=== PATIENT | male | born 1970 | race Caucasian/White ===

== ENCOUNTER 2024-08-02 10:04 | Emergency (ER) | payer BC, OTHER, SELFPAY ==
[2024-08-02] VITALS (8 sets, daily range): BP systolic 119–165; BP diastolic 77–104; PULSE 73–99; RESP 18–22; TEMP 36.6; O2SAT 95–99; BMI 31.7
--- NOTE | 2024-08-02 10:10 | EKG12_ITS ---
Test Reason : CP Blood Pressure : */* mmHG Vent. Rate : 96 BPM Atrial Rate : 96 BPM P-R Int : 126 ms QRS Dur : 98 ms QT Int : 366 ms P-R-T Axes : 41 -23 42 degrees QTcB Int : 462 ms Normal sinus rhythm Normal ECG Confirmed by Jonathan Sparks ([id number]), manager editorial KIESHA EUGENE ([id number]) on 08/03/2024 8:20:55 AM Referred By: Confirmed By: Jonathan Sparks
[2024-08-02] MEDS: Nitroglycerin SL (ED/IMG/CATH) 0.4 MG TABLET SL (10:14)
[2024-08-02] MEDS: Aspirin 81 MG TAB.CHEW 324 MG PO (10:14)
--- NOTE | 2024-08-02 10:20 | RAD_ITS ---
PROCEDURE: CHEST 1 VIEW (PORTABLE) REASON FOR EXAM: Dyspnea this morning. TECHNIQUE: Frontal view of the chest. COMPARISON: None FINDINGS: EKG electrodes are seen. The heart size is normal. Elevation of the right hemidiaphragm. Mild degree of bibasilar atelectasis. RAD/Chest 1 View (Portable) IMPRESSION: Mild degree of bibasilar atelectasis. Reading Location: [facility]
[2024-08-02 10:33] LABS: Absolute Lymphocyte Count 0.92 X10^3/uL (0.83-4.51); Absolute Neutrophil Count 5.4 X10^3/uL (2.0-7.7); Basophil# 0.04 X10^3/uL; Basophil% 0.6 % (0-1); Eosinophil# 0.16 X10^3/uL; Eosinophils% 2.3 % (0-5); Hematocrit 44.4 % (40-54); Hemoglobin 14.6 g/dL (13.0-16.5); Lymphocyte # 0.92 X10^3/ul (0.83-4.51); Mean Corp Hgb Conc 32.9 g/dL (32-36); Mean Corpuscular Hgb 29.6 pg (27.0-32.0); Mean Corpuscular Volume 89.9 fL (80-94); Mean Platelet Vol. 9.7 fl (6.2-12.0); Monocyte# 0.53 X10^3/uL; Monocyte% 7.5 % (0-10); NRBC Flagged by Analyzer 0 % (0-5); Neutrophil # 5.43 X10^3/uL (2.7-7.7); Neutrophil % 76.5 % (47-70); Platelet Count 247 K/mm3 (150-450); RBC Distribution Width CV 12.9 % (11.6-14.6); RBC Distribution Width SD 42.3 fl (35.1-43.9); Red Blood Count 4.94 M/mm3 (4.6-6.2); White Blood Count 7.1 K/mm3 (4.4-11.0)
--- NOTE | 2024-08-02 10:46 | CT_ITS ---
PROCEDURE: CTA CHEST W/WO CONTRAST REASON FOR EXAM: Left-sided chest pain. Worse with deep breathing. 100 cc of Isovue 370. TECHNIQUE: CTA imaging of the chest with intravenous contrast. 3D reconstructions. CONTRAST: COMPARISON: Comparison is made with prior chest radiograph done earlier in the day. FINDINGS: Hardware: None. Lymph nodes: Small bilateral axillary lymph nodes. Small benign-appearing mediastinal lymph nodes. Heart: Normal heart size. No pericardial effusion. RV/LV Diameter Ratio: N/A Thoracic Aorta: No thoracic aortic aneurysm or dissection. Pulmonary Vessels: No evidence of acute pulmonary emboli through the major subsegmental branches. Most Proximal Level of Embolus (if embolus present): N/A Lungs and Airways: Small left pleural effusion with increased markings at the left lung base suggestive of compressive atelectasis. With the patient's history of trauma, this may represent contusion. Elevation of the right hemidiaphragm. Pleura: No pleural effusion. No pneumothorax. Upper Abdomen: There is a 4 cm cyst in the upper lateral aspect of the left kidney. Bones: No rib fractures are seen. CT/CTA Chest W/WO Contrast IMPRESSION: Small left pleural effusion with atelectasis and/or possible contusion at the l eft lung base. No overlying rib fracture is seen. One or more dose reduction techniques were used (e.g., Automated exposure contr ol, adjustment of the mA and/or kV according to patient size, use of iterative reconstruction technique). Reading Location: [id number]
[2024-08-02 11:03] LABS: Troponin T High Sensitivity 8 ng/L (<=22)
--- NOTE | 2024-08-02 11:53 | ED.RN ---
calling lab regarding not having BMP results
--- NOTE | 2024-08-02 11:54 | ED.VIS.CHEST ---
HPI History of Present Illness Chief Complaint: Chest Pain Narrative Narrative: 54-year-old male presents with left-sided pleuritic chest pain that he has had over the last hour. While it is slowly improving, but still present. It hurts more when he takes a deep breath. He denies any recent fevers or chills, no cough. No nausea or vomiting. He does feel short of breath and gets sharp pain on the left side more anteriorly whenever he tries to take a deep breath. No recent leg swelling. [facility] Medical History Anxiety Home Medications ?Medication ?Instructions ?Recorded ?Last Taken ?Type oxycodone-acetaminophen 5 mg-325 1 tab PO Q6H PRN pain 3 days #12 08/02/24 Unknown Rx mg tablet (Percocet) tabs Allergy/AdvReac Type Severity Reaction Status Date / Time No Known Allergies Allergy Verified 08/02/24 10:04 Social History Smoking Status: Never smoker ROS ROS ED ROS Narrative Review of systems positive for left-sided pleuritic chest pain. No nausea or vomiting. Mild shortness of breath. Worse with deep breathing pain. No fevers or chills. No nausea or vomiting. No diaphoresis. Denies abdominal pain or increased leg swelling. EXAM Physical Exam Narrative Exam Narrative: Afebrile. Vital signs noted. Nontoxic-appearing. The abdomen is soft nontender with normoactive bowel sounds. Cardiovascular examination reveals a regular rate and rhythm. Lungs are clear to auscultation bilaterally. Neurological examination nonfocal and nonlateralizing. No appreciable pedal edema. Const Vital Signs: 08/02/24 10:05 08/02/24 10:07 08/02/24 10:14 Temperature 97.8 F Temperature Source Oral Pulse Rate 97 96 Respiratory Rate 18 Respiratory Effort Normal Non-Labored Respiratory Pattern Normal Blood Pressure 165/104 H 161/103 H Blood Pressure Mean 124 Pulse Ox 96 Oxygen Delivery Method Room Air 08/02/24 10:28 08/02/24 10:40 08/02/24 11:44 Temperature Temperature Source Pulse Rate 99 85 83 Respiratory Rate 22 H 18 18 Respiratory Effort Respiratory Pattern Blood Pressure 144/100 H 129/96 H 120/78 Blood Pressure Mean 114 107 92 Pulse Ox 99 98 98 Oxygen Delivery Method Room Air Room Air Room Air 08/02/24 12:49 08/02/24 13:29 08/02/24 13:53 Temperature 98 F Temperature Source Pulse Rate 77 77 73 Respiratory Rate 18 18 18 Respiratory Effort Respiratory Pattern Blood Pressure 124/78 H 119/77 135/85 H Blood Pressure Mean 93 91 101 Pulse Ox 95 98 98 Oxygen Delivery Method Room Air Room Air Heart Score History: Slightly/Non-Suspicious ECG: Normal Age: >45 - <65 years Risk Factors: 1 or 2 Risk Factors Troponin: </= Normal Limit Score: 2 MDM MDM MDM Narrative Medical decision making narrative: Differential diagnosis includes but not limited to pneumonia versus pleurisy versus pulmonary embolism versus ACS. Patient administered aspirin and nitroglycerin with no change in his pleuritic pain. EKG obtained and interpreted by myself independently as normal sinus rhythm at 96 bpm without ectopy or acute ST changes. No STEMI. I reviewed his laboratory work and he has normal white count of 7.1 with hemoglobin normal at 14.6, hematocrit 44.4, platelet count normal at 247. His D-dimer is elevated at 1.90. This may be more suspicious for pulmonary embolism. Chest x-ray had already been obtained and interpreted by myself independently bibasilar atelectasis but no consolidation or pneumothorax. I reviewed the radiology report which confirms my independent interpretation. I reviewed his BMP and he has a sodium normal at 137 with chloride 102, potassium normal at 4.4. There may be slight hemolysis. Creatinine 0.92 and normal with BUN of 26. Initial high-sensitivity troponin is 8 with repeat at 2 hours being 7. I feel his delta troponin is acceptable and that he has been ruled out for ACS with biomarkers. I reviewed the radiology report of the CTA of the chest which shows no evidence of pulmonary embolism. While there is no pulmonary embolism, there is small left pleural effusion noted. He was then administered ketorolac and morphine for his pleuritic chest pain. No feel he requires antibiotics for pneumonia. His blood pressure has come down to 124/78 from 165/104. Pulse ox currently 99% on room air. Repeat examination shows him resting comfortably. At this point in time, I do feel he can be discharged to follow-up regarding his pleural effusion and pleuritic chest pain. He has written a prescription for 12 Percocet tablets to take as needed. He can also take [id number] ibuprofen. Return instructions to the emergency department were reviewed. Disposition is discharged home in stable condition. History & Record Review Discussion w/independent historian: Patient Lab Data Attestation: I reviewed the patient's lab results. Labs: Laboratory Results - last 24 hr 08/02/24 08/02/24 08/02/24 10:07 10:07 10:07 WBC 7.1 RBC 4.94 Hgb 14.6 Hct 44.4 MCV 89.9 MCH 29.6 MCHC 32.9 RDW Std Deviation 42.3 RDW Coeff of Kala 12.9 Plt Count 247 MPV 9.7 Immature Gran % (Auto) 0.100 Neut % (Auto) 76.5 H Lymph % (Auto) 13.0 L [place] % (Auto) 7.5 Eos % (Auto) 2.3 Baso % (Auto) 0.6 Absolute Neuts (auto) 5.4 Absolute Lymphs (auto) 0.92 Nucleated RBC % 0 D-Dimer Quant (PE/DVT) 1.90 H* Sodium 137 Cancelled Cancelled Potassium 4.4 Chloride Carbon Dioxide Anion Gap BUN Creatinine Estim Creat Clear Calc Est GFR (MDRD) Non-Af BUN/Creatinine Ratio Glucose Calcium Troponin T High Sens Troponin T Hi Sens 2 Hr 08/02/24 08/02/24 08/02/24 10:07 10:07 10:07 WBC RBC Hgb Hct MCV MCH MCHC RDW Std Deviation RDW Coeff of Kala Plt Count MPV Immature Gran % (Auto) Neut % (Auto) Lymph % (Auto) [place] % (Auto) Eos % (Auto) Baso % (Auto) Absolute Neuts (auto) Absolute Lymphs (auto) Nucleated RBC % D-Dimer Quant (PE/DVT) Sodium Potassium Cancelled Cancelled Chloride 102 Cancelled Carbon Dioxide Anion Gap BUN Creatinine Estim Creat Clear Calc Est GFR (MDRD) Non-Af BUN/Creatinine Ratio Glucose Calcium Troponin T High Sens Troponin T Hi Sens 2 Hr 08/02/24 08/02/24 08/02/24 10:07 10:07 10:07 WBC RBC Hgb Hct MCV MCH MCHC RDW Std Deviation RDW Coeff of Kala Plt Count MPV Immature Gran % (Auto) Neut % (Auto) Lymph % (Auto) [place] % (Auto) Eos % (Auto) Baso % (Auto) Absolute Neuts (auto) Absolute Lymphs (auto) Nucleated RBC % D-Dimer Quant (PE/DVT) Sodium Potassium Chloride Cancelled Carbon Dioxide 18.8 L Cancelled Cancelled Anion Gap 16 H BUN Creatinine Estim Creat Clear Calc Est GFR (MDRD) Non-Af BUN/Creatinine Ratio Glucose Calcium Troponin T High Sens Troponin T Hi Sens 2 Hr 08/02/24 08/02/24 08/02/24 10:07 10:07 10:07 WBC RBC Hgb Hct MCV MCH MCHC RDW Std Deviation RDW Coeff of Kala Plt Count MPV Immature Gran % (Auto) Neut % (Auto) Lymph % (Auto) [place] % (Auto) Eos % (Auto) Baso % (Auto) Absolute Neuts (auto) Absolute Lymphs (auto) Nucleated RBC % D-Dimer Quant (PE/DVT) Sodium Potassium Chloride Carbon Dioxide Anion Gap Cancelled Cancelled BUN 26 H Cancelled Creatinine Estim Creat Clear Calc Est GFR (MDRD) Non-Af BUN/Creatinine Ratio Glucose Calcium Troponin T High Sens Troponin T Hi Sens 2 Hr 08/02/24 08/02/24 08/02/24 10:07 10:07 10:07 WBC RBC Hgb Hct MCV MCH MCHC RDW Std Deviation RDW Coeff of Kala Plt Count MPV Immature Gran % (Auto) Neut % (Auto) Lymph % (Auto) [place] % (Auto) Eos % (Auto) Baso % (Auto) Absolute Neuts (auto) Absolute Lymphs (auto) Nucleated RBC % D-Dimer Quant (PE/DVT) Sodium Potassium Chloride Carbon Dioxide Anion Gap BUN Cancelled Creatinine 0.9 Cancelled Cancelled Estim Creat Clear Calc 133.45 Est GFR (MDRD) Non-Af BUN/Creatinine Ratio Glucose Calcium Troponin T High Sens Troponin T Hi Sens 2 Hr 08/02/24 08/02/24 08/02/24 10:07 10:07 10:07 WBC RBC Hgb Hct MCV MCH MCHC RDW Std Deviation RDW Coeff of Kala Plt Count MPV Immature Gran % (Auto) Neut % (Auto) Lymph % (Auto) [place] % (Auto) Eos % (Auto) Baso % (Auto) Absolute Neuts (auto) Absolute Lymphs (auto) Nucleated RBC % D-Dimer Quant (PE/DVT) Sodium Potassium Chloride Carbon Dioxide Anion Gap BUN Creatinine Estim Creat Clear Calc Cancelled Cancelled Est GFR (MDRD) Non-Af 99 Cancelled BUN/Creatinine Ratio Glucose Calcium Troponin T High Sens Troponin T Hi Sens 2 Hr 08/02/24 08/02/24 08/02/24 10:07 10:07 10:07 WBC RBC Hgb Hct MCV MCH MCHC RDW Std Deviation RDW Coeff of Kala Plt Count MPV Immature Gran % (Auto) Neut % (Auto) Lymph % (Auto) [place] % (Auto) Eos % (Auto) Baso % (Auto) Absolute Neuts (auto) Absolute Lymphs (auto) Nucleated RBC % D-Dimer Quant (PE/DVT) Sodium Potassium Chloride Carbon Dioxide Anion Gap BUN Creatinine Estim Creat Clear Calc Est GFR (MDRD) Non-Af Cancelled BUN/Creatinine Ratio 27.8 H Cancelled Cancelled Glucose 95 Calcium Troponin T High Sens Troponin T Hi Sens 2 Hr 08/02/24 08/02/24 08/02/24 10:07 10:07 10:07 WBC RBC Hgb Hct MCV MCH MCHC RDW Std Deviation RDW Coeff of Kala Plt Count MPV Immature Gran % (Auto) Neut % (Auto) Lymph % (Auto) [place] % (Auto) Eos % (Auto) Baso % (Auto) Absolute Neuts (auto) Absolute Lymphs (auto) Nucleated RBC % D-Dimer Quant (PE/DVT) Sodium Potassium Chloride Carbon Dioxide Anion Gap BUN Creatinine Estim Creat Clear Calc Est GFR (MDRD) Non-Af BUN/Creatinine Ratio Glucose Cancelled Cancelled Calcium 9.6 Cancelled Troponin T High Sens Troponin T Hi Sens 2 Hr 08/02/24 08/02/24 10:07 12:00 WBC RBC Hgb Hct MCV MCH MCHC RDW Std Deviation RDW Coeff of Kala Plt Count MPV Immature Gran % (Auto) Neut % (Auto) Lymph % (Auto) [place] % (Auto) Eos % (Auto) Baso % (Auto) Absolute Neuts (auto) Absolute Lymphs (auto) Nucleated RBC % D-Dimer Quant (PE/DVT) Sodium Potassium Chloride Carbon Dioxide Anion Gap BUN Creatinine Estim Creat Clear Calc Est GFR (MDRD) Non-Af BUN/Creatinine Ratio Glucose Calcium Cancelled Troponin T High Sens 8 Troponin T Hi Sens 2 Hr 7 Radiography Chest X-Ray - ED: 1 View, Read by ED Physician and Read by Radiologist Diagnostic Testing: Clinical Impression(s) from Imaging Studies Chest X-Ray 08/02/24 10:20 IMPRESSION: Mild degree of bibasilar atelectasis. Reading Location: [id number] Chest CTA 08/02/24 10:46 IMPRESSION: Small left pleural effusion with atelectasis and/or possible contusion at the left lung base. No overlying rib fracture is seen. One or more dose reduction techniques were used (e.g., Automated exposure control, adjustment of the mA and/or kV according to patient size, use of iterative reconstruction technique). Reading Location: [id number] Discharge Plan Triage Chief Complaint: Chest Pain ED Provider: Michele Manzano Dx/Rx/DC Orders Clinical Impression: Pleuritic chest pain, Pleural effusion Instructions: ED Chest Pain, Uncertain Cause, ED Pleural Effusion, ED Pleurisy Prescriptions: New oxycodone-acetaminophen [Percocet] 5-325 mg tablet 1 tab PO Q6H PRN (Reason: pain) 3 Days Qty: 12 0RF Primary Care Provider: Care Physician,No Primary Referrals: NOT,DEFINED [Non-Staff] - Activity Restrictions/Additional Instructions: Follow-up with your primary care physician regarding your left-sided pleural effusion. Return to the emergency department with increased pain, difficulty breathing, new or worsening symptoms. You can continue ibuprofen for analgesia and take Percocet for breakthrough pain. Print Language: Chadian Disposition Disposition: Home, Self Care Discharge Date/Time: 08/02/24 13:56
[2024-08-02] MEDS: Ketorolac 15 MG/ML Vial IV (11:58)
[2024-08-02] MEDS: Morphine 4 MG/ML Syringe IV (11:58)
[2024-08-02 12:51] LABS: BUN 26 mg/dL (4-19); BUN/Creat Ratio 27.8 RATIO (10-20); Creatinine, Serum 0.9 mg/dL (0.8-1.3); EST Glomerular Filtration Rate 99 (>60); Estimated Creatinine Clearance 133.45 ml/min; Glucose 95 mg/dL (70-99)
[2024-08-02 14:23] LABS: Anion Gap 16 (5-15); Calcium,Total 9.6 mg/dL (7.6-11.0); Carbon Dioxide 18.8 mmol/L (21.0-32.0); Chloride 102 mmol/L (98-107); Potassium 4.4 mmol/L (3.5-5.1); Sodium Level 137 mmol/L (136-145)
[2024-08-02 15:17] LABS: TROPONIN VARIANCE 2 HR UTC
[2024-08-03 13:26] LABS: Troponin T High Sens 2 HR 8 ng/L (<=22)
== END 2024-08-02 13:56 | disposition home or self-care (01) ==
PROVIDERS: Emergency Provider Emergency Medicine; Visit Provider Emergency Medicine
DX: R07.81 Pleurodynia (principal); J90 Pleural effusion, not elsewhere classified
CPT/HCPCS: 71045; 71275; 80048; 84484; 85025; 85379; 93005; 96374; 96375; 96376; 99283; Q9967; A4216